=== PATIENT | male | born 1955 | race Caucasian/White ===

== ENCOUNTER 2025-03-23 16:08 | Inpatient (IN) | payer MEDICARE, OTHER ==
[~2025-03-23] VITALS: Ht 177.8 cm; Wt 83.9 kg
[2025-03-23] MEDS ORDERED: LEVO125T8 PO (17:28)
[2025-03-23] MEDS ORDERED: INSU100I26 SQ (17:28)
[2025-03-23] MEDS ORDERED: ROSU20TA2 PO (17:28)
[2025-03-23] MEDS ORDERED: BRIM5DRO11 EACHEYE (17:28)
[2025-03-23] MEDS ORDERED: METF-440 PO (17:28)
[2025-03-23] MEDS ORDERED: LORA-258 PO (17:28)
[2025-03-23] MEDS ORDERED: METF-442 PO (17:28)
[2025-03-23] MEDS ORDERED: LOSA100T31 PO (17:28)
[2025-03-23] MEDS ORDERED: DOCU250C14 PO (17:28)
[2025-03-23] MEDS ORDERED: ZOLP5TAB2 PO (17:28)
[2025-03-23] MEDS ORDERED: QUET300T2 PO (17:28)
[2025-03-23] MEDS ORDERED: DIVA500T4 PO (17:28)
[2025-03-23] MEDS ORDERED: QUET100T PO (17:28)
[2025-03-23] MEDS ORDERED: ESCI10TA PO (17:28)
[2025-03-23] MEDS ORDERED: TIMO5DRO18 EACHEYE (17:28)
[2025-03-23 17:48] LABS: PLATELET COUNT (AUTO) 257 K/uL (150-450); RED BLOOD CELL COUNT(AUTO) 4.26 MIL/uL (4.5-6.0); RED CELL DISTRIBUTION WIDTH 13.3 % (11.5-15.0); WHITE BLOOD COUNT (AUTO) 8.5 K/uL (4.3-11.0)
[2025-03-23 18:03] LABS: ALCOHOL, BLOOD < 3 mg/dL (0-10); ASPARTATE AMINOTRANSFERASE 30 U/L (15-37); TOTAL PROTEIN, SERUM 6.9 g/dL (6.4-8.2)
[2025-03-23 18:05] LABS: SODIUM SERUM 135.0 mmol/L (136-145)
[2025-03-23 18:06] LABS: CREATININE 1.5 mg/dL (0.6-1.3); UREA NITROGEN, BLOOD 21.0 mg/dL (7-18)
[2025-03-23 18:25] LABS: CALCIUM, SERUM 8.7 mg/dL (8.5-10.1); NT-PRO BNP 20 pg/mL (0-125)
[2025-03-23 18:53] LABS: APPEARANCE,URINE CLEAR (CLEAR); BLOOD, URINE NEGATIVE Ery/uL (NEGATIVE); LEUKOCYTE ESTERASE ,URINE NEGATIVE (NEGATIVE); NITRITE, URINE NEGATIVE (NEGATIVE); UGLUCOSE 3+ mg/dL (NEGATIVE)
[2025-03-23 19:42] LABS: ADD URINE CULTURE NO; SQUAMOUS EPITHELIAL CELL,UR 0-2 /HPF (None Seen)
[2025-03-23] MEDS ORDERED: LORAZEPAM 1 MG TABLET PO PRN (20:00)
[2025-03-23 20:30] VITALS: BP 146/80; TEMP 97.6; O2SAT 97
[2025-03-23] MEDS ORDERED: LORAZEPAM 0.5 MG TABLET PO PRN (20:30)
[2025-03-23] MEDS ORDERED: MAG HYDROX/AL HYDROX/SIMETH 30 ML UDC PO PRN (20:30)
[2025-03-23 20:33] LABS: AMPHETAMINE, URINE NEGATIVE (NEGATIVE); BARBITURATE, URINE NEGATIVE (NEGATIVE); BENZODIAZEPINE, URINE NEGATIVE (NEGATIVE); CANNABINOID, URINE NEGATIVE (NEGATIVE); COCCAINE, URINE NEGATIVE (NEGATIVE); OPIATE, URINE NEGATIVE (NEGATIVE)
[2025-03-23] MEDS: BLOOD SUGAR DIAGNOSTIC 1 EACH STRIP IN ONE (20:50)
[2025-03-23] MEDS: METFORMIN 500 MG TABLET PO ONE (20:54)
[2025-03-23] MEDS ORDERED: DEXTROSE 50%-WATER 50 ML DISP.SYRIN IV PRN (21:00)
[2025-03-23] MEDS ORDERED: INSULIN GLARGINE,BASAGLAR 100 UNIT/ML INSULN.PEN SQ SCH (21:30)
[2025-03-23] MEDS: FUROSEMIDE 20 MG TABLET PO ONE (21:50)
[2025-03-23] MEDS ORDERED: DIVALPROEX SODIUM 500 MG TABLET.DR PO SCH (22:00)
[2025-03-23] MEDS: BLOOD SUGAR DIAGNOSTIC 1 EACH STRIP IN SCH (22:24)
[2025-03-23] MEDS: INSULIN GLARGINE, 100 UNIT/ML CARTRIDGE SQ SCH (22:28)
[2025-03-23] MEDS: INSULIN REGULAR, HUMAN 100 UNIT/ML 3 ML VIAL SQ PRN (22:38)
[2025-03-24] MEDS: TEMAZEPAM 7.5 MG CAPSULE PO PRN (00:13)
[2025-03-24 07:28] LABS: CREATININE 1.2 mg/dL (0.6-1.3)
[2025-03-24 07:34] LABS: ASPARTATE AMINOTRANSFERASE 33.0 U/L (15-37); CALCIUM, SERUM 9.5 mg/dL (8.5-10.1); CREATININE 1.2 mg/dL (0.6-1.3); SODIUM SERUM 138.0 mmol/L (136-145); TOTAL PROTEIN, SERUM 8.3 g/dL (6.4-8.2); UREA NITROGEN, BLOOD 20.0 mg/dL (7-18)
[2025-03-24 08:00] VITALS: BP 148/98; TEMP 98.7; O2SAT 99
[2025-03-24] MEDS: LEVOTHYROXINE SODIUM 125 MCG TABLET PO SCH (08:03)
[2025-03-24] MEDS: PANTOPRAZOLE 40 MG TABLET.DR PO SCH (08:03)
[2025-03-24] MEDS ORDERED: QUETIAPINE FUMARATE 100 MG TABLET PO SCH (09:00)
[2025-03-24] MEDS ORDERED: ESCITALOPRAM OXALATE (10 MG) 10 MG TABLET PO SCH (09:00)
[2025-03-24] MEDS ORDERED: LORAZEPAM 4 MG/ML VIAL IM ONE (10:00)
[2025-03-24] MEDS: LORAZEPAM INJ 2 MG/ML VIAL IM ONE (10:10)
[2025-03-24 10:12] LABS: VALPROIC ACID 45.0 ug/mL (50-100)
[2025-03-24] MEDS: ATORVASTATIN 40 MG TABLET PO SCH (10:16)
[2025-03-24] MEDS: BRIMONIDINE TARTRATE OPHT SOLN 5 ML BOTTLE EACHEYE SCH (10:17)
[2025-03-24] MEDS: DOCUSATE SODIUM 250 MG CAPSULE PO SCH (10:17)
[2025-03-24] MEDS: TIMOLOL 0.5% SOLN OPHTH 5 ML BOTTLE EACHEYE SCH (10:17)
[2025-03-24] MEDS: LORAZEPAM 1 MG TABLET PO ONE (10:18)
[2025-03-24] MEDS: DIVALPROEX SODIUM 500 MG TABLET.DR PO SCH (12:33)
[2025-03-24] MEDS: MAGNESIUM HYDROXIDE 30 ML UDC PO PRN (14:03)
[2025-03-24 16:00] VITALS: BP 128/86; TEMP 97.9; O2SAT 100
[2025-03-24] MEDS: ACETAMINOPHEN 325 MG TABLET PO PRN (16:18)
[2025-03-24] MEDS: QUETIAPINE FUMARATE 100 MG TABLET PO SCH ×2 (16:18→21:35)
[2025-03-24 20:08] VITALS: BP 145/96; TEMP 97.8; O2SAT 98
[2025-03-25] MEDS: TEMAZEPAM 7.5 MG CAPSULE PO PRN (01:34)
[2025-03-25 08:00] VITALS: BP 132/98; TEMP 98.8; O2SAT 99
[2025-03-25] MEDS: LORAZEPAM 0.5 MG TABLET PO PRN (08:09)
[2025-03-25 16:00] VITALS: BP 134/89; TEMP 98.1; O2SAT 99
[2025-03-25 19:59] VITALS: BP 118/80; TEMP 98.2; O2SAT 99
[2025-03-25] MEDS: OLANZAPINE 5 MG TABLET PO ONE (21:34)
[2025-03-26 08:00] VITALS: BP 153/99; TEMP 98.7; O2SAT 100
[2025-03-26 09:07] LABS: LDL 73.0 mg/dL (0-99)
[2025-03-26] MEDS: OLANZAPINE 2.5 MG TABLET PO SCH (11:27)
[2025-03-26 16:00] VITALS: BP 153/90; TEMP 98; O2SAT 100
[2025-03-26 19:44] VITALS: BP 148/92; TEMP 98.2; O2SAT 100
[2025-03-27] MEDS: LORAZEPAM 0.5 MG TABLET ONE (03:40)
[2025-03-27 08:00] VITALS: BP 127/98; TEMP 97.8; O2SAT 97
[2025-03-27 16:00] VITALS: BP 128/90; TEMP 97.7; O2SAT 99
[2025-03-27] MEDS: OLANZAPINE 5 MG TABLET PO SCH ×2 (16:40→21:18)
[2025-03-27 21:09] VITALS: BP 120/60; TEMP 97.7; O2SAT 98
[2025-03-27] MEDS: ZOLPIDEM TARTRATE 5 MG TABLET PO ONE (23:11)
[2025-03-28 08:00] VITALS: BP 148/80; TEMP 98.2; O2SAT 97
[2025-03-28 16:00] VITALS: BP 143/107; TEMP 98.1; O2SAT 99
[2025-03-28] MEDS: OLANZAPINE 10 MG VIAL IM STA (16:30)
[2025-03-28 20:20] VITALS: BP 119/75; TEMP 98.1; O2SAT 98
[2025-03-28] MEDS: OLANZAPINE 10 MG TABLET PO SCH (21:25)
[2025-03-29] MEDS: LORAZEPAM 1 MG TABLET PO PRN (00:12)
[2025-03-29 08:00] VITALS: BP 126/84; TEMP 98.1; O2SAT 100
[2025-03-29] MEDS: INSULIN GLARGINE, 100 UNIT/ML CARTRIDGE SQ SCH (08:39)
[2025-03-29] MEDS ORDERED: OLANZAPINE 2.5 MG TABLET PO SCH (12:00)
[2025-03-29] MEDS: OLANZAPINE 2.5 MG TABLET PO SCH (12:07)
[2025-03-29 16:15] VITALS: BP 117/81; TEMP 97.8; O2SAT 100
[2025-03-29 20:57] VITALS: BP 117/73; TEMP 97.8; O2SAT 97
[2025-03-30 08:00] VITALS: BP 137/92; TEMP 98.1; O2SAT 99
== END 2025-03-30 11:22 | disposition home or self-care (01) | DRG 885 ==
LOC: ER 16:21 → GPS 19:55
PROVIDERS: ADMIT Psychiatry & Neurology Psychosomatic Medicine; ATTEND Registered Nurse Psychiatric/Mental Health
DX: F31.2 Bipolar disorder, current episode manic severe with psychotic features (principal); N17.9 Acute kidney failure, unspecified; E11.65 Type 2 diabetes mellitus with hyperglycemia; E44.1 Mild protein-calorie malnutrition; L03.115 Cellulitis of right lower limb; L03.116 Cellulitis of left lower limb; I10 Essential (primary) hypertension; D64.9 Anemia, unspecified; E11.42 Type 2 diabetes mellitus with diabetic polyneuropathy; E78.5 Hyperlipidemia, unspecified; E88.09 Other disorders of plasma-protein metabolism, not elsewhere classified; G47.00 Insomnia, unspecified; M89.8X9 Other specified disorders of bone, unspecified site; E83.9 Disorder of mineral metabolism, unspecified; Z79.4 Long term (current) use of insulin; Z79.899 Other long term (current) drug therapy; Z20.822 Contact with and (suspected) exposure to COVID-19; E03.9 Hypothyroidism, unspecified; Z68.26 Body mass index [BMI] 26.0-26.9, adult; R21 Rash and other nonspecific skin eruption; F29 Unspecified psychosis not due to a substance or known physiological condition
CPT/HCPCS: 36415; 80048-TC; 80053-TC; 80061-TC; 80076-TC; 80164-TC; 81001; 82140-TC; 82565-TC; 82962-TC; 83880; 84439-TC; 84443-TC; 84481; 84484-TC; 85025-TC; 87081-TC; 93970-TC; G0480; J1815; J2060; J3490